=== PATIENT | female | born 1930 | race Caucasian/White ===

== ENCOUNTER 2017-01-13 23:51 | Inpatient (IN) | payer MEDICARE ==
--- NOTE | ~2017-01-13 | IDS ---
Interim Discharge Summary [facility] [address] [place]. [address] NAME: MEGAN MOSS : 30 STATUS : ADM IN PAT#: [id number] AGE: 86 ADM/REG DATE : 01/14/17 MR#: [id number] REPORT SERV DATE: 01/17/17 DICTATED BY: RTEE STRONG DATE: 01/17/17 REPORT STATUS : Draft TRANSCRIBED BY: IMELDA DATE: 01/17/17 ADMISSION DATE: 01/13/2017 DISCHARGE DATE: DATE OF INTERIM DISCHARGE: 01/17/2017 PROCEDURES DONE: 1. On 01/15/2017, KUB: Evidence for prior aortic stent graft, CABG procedure. Benign bowel gas pattern. Cardiomegaly. Left pleural effusion. 2. On 01/15/2017, chest x-ray PA and lateral, failure with left greater than right effusions. Cardiomegaly. Prior CABG procedure changes, stable. CONSULT: Dr. Alba from Cardiology. REASON FOR ADMISSION: Shortness of breath. HISTORY OF HOSPITAL STAY: An 86-year-old white female with past medical history of CHF with ejection fraction of 20% to 25% systolic dysfunction; chronic kidney disease, stage III; coronary artery disease, status post CABG; hypothyroidism; hypertension; peripheral vascular disease; presenting with shortness of breath. The patient was admitted for shortness of breath secondary to acute exacerbation of congestive heart failure. The patient was started on diuretics with Bumex t.i.d. Unfortunately, the patient developed elevated creatinine which required decreasing the dose. Cardiology was consulted for further management and the patient's acute systolic dysfunction. With the patient's worsening renal function, diuretics have been decreased and Milrinone has been started. With the renal function getting better, Cardiology increased the Bumex 1 mg t.i.d. and also continued with Milrinone with the hopes of decreasing the patient's congestive heart failure. Unfortunately, despite aggressive diuresis, the patient's BNP continues to elevate, hence the shortness of breath. DIAGNOSES ON DISCHARGE: 1. Shortness of breath secondary to acute exacerbation of congestive heart failure, systolic dysfunction, EF of 20% to 25%. Appreciate Cardiology input. Aggressive diuresis has been started. However, the patient's response has been prohibited by the elevated creatinine. We will monitor the patient's renal function with increase of diuresis. 2. Acute exacerbation of congestive heart failure, systolic dysfunction, because of problem #1. 3. Coronary artery disease, currently stable. 4. Chronic kidney disease, stage 3. The patient's renal function seems to fluctuate/worsens with increase of diuretics. Milrinone has been started per Cardiology. However, very difficult to maintain good renal function with diuretics. 5. Atrial fibrillation, continue the aspirin and Plavix. 6. Hypertension. The patient's blood pressure seems to fluctuate with the aggressive diuresis. At this time, priority goal is to diurese the patient as much as possible to decrease the shortness of breath. Interim Discharge Summary [address] [address] NAME: MEGAN MOSS : 30 STATUS : ADM IN [facility]#: [id number] AGE: 86 ADM/REG DATE : 01/14/17 MR#: [id number] REPORT SERV DATE: 01/17/17 DICTATED BY: TREE STRONG DATE: 01/17/17 REPORT STATUS : Draft TRANSCRIBED BY: IMELDA DATE: 01/17/17 CAROL/IMELDA Tree Strong MD / [id number] CC: MD TEJAS Anaya
--- NOTE | ~2017-01-13 | HP ---
History And Physical [place] [id number] [facility] [place]. [address] NAME: MEGAN BRUNO : 30 STATUS : ADM Nestor PAT#: [id number] AGE: 86 ADM/REG DATE : 01/13/17 MR#: [id number] REPORT SERV DATE: 01/14/17 DICTATED BY: EDGAR CORONADO DATE: 01/14/17 REPORT STATUS : Draft TRANSCRIBED BY: MODL DATE: 01/14/17 DATE OF ADMISSION: 01/13/2017 CHIEF COMPLAINT: This is a patient we accepted in transfer from [facility] after I spoke with Dr. Carey Galvez. HISTORY OF PRESENT ILLNESS: Briefly, this is an 86-year-old lady who according to Dr. Galvez came to their emergency room via EMS, had 3-4 days of worsening shortness of breath, cough, and yellowish sputum production. She has history of congestive heart failure for which she takes 2 mg of Bumex at home along with supplemental oxygen therapy at 2 L via nasal cannula. The EMS gave her some nebulized bronchodilator treatments, gave her a shot of Solu-Medrol as well. In the ER, the patient continued to have wheezes in both lungs and had intravenous Bumex as well. She then put out 500 mL of urine. Her BUN and creatinine were elevated at 43 and 1.7 today as well. EKG showed atrial fibrillation with rapid ventricular response at 110 per minute. She had a left bundle-branch block as well. Initial troponin was 0.08 and subsequently 0.7. She had complained of no chest pain. A chest x-ray according to Dr. Galvez showed pulmonary edema with left basal opacity versus atelectasis. BNP was not checked. She was given a dose of intravenous levofloxacin as well. Prior to transfer, her vital signs showed a heart rate of 124 which bounced anywhere between upper 90s to 120s. Her blood pressure was 143/66 and oxygen saturations were 92% on 2 L via nasal cannula. At the time of my evaluation here, Mrs. Bruno was an 86-year-old, who is alert, awake, oriented, not in acute distress. She did complain a lot about her restless legs syndrome and anxiety. She wanted Xanax. She denied any chest pain, palpitations, or orthopnea. She had no cough, hemoptysis, night sweats, or weight loss. She had no recent falls, loss of consciousness. She had no recent fevers, chills, nausea, vomiting, diarrhea. She did not have any hematemesis, hematochezia or hematuria. No other history of recent travel or exposures. PAST MEDICAL HISTORY: Significant for history of systolic congestive heart failure with an ejection fraction of 20% and cardiomyopathy. She has chronic kidney disease stage 3. She has coronary artery disease with coronary artery bypass graft. She has peripheral vascular disease, severe mitral regurgitation, and paroxysmal atrial fibrillation. She has hypothyroidism, abdominal aortic aneurysm, ischemic colitis, and mesenteric ischemia and past history of breast cancer status post mastectomy and radiation therapy. She also has COPD and hypertension. SOCIAL HISTORY: She has about more than 150 pack year history of smoking although she quit last year. She denies alcohol use or recreational drug use. She used to work in [employer] in the [employer]. FAMILY HISTORY: Noncontributory. MEDICATIONS: Her medications at home were reviewed by me in the chart today and reordered by me. History And Physical [address] [address] NAME: MEGAN BRUNO : 30 STATUS : ADM Nestor PAT#: [id number] AGE: 86 ADM/REG DATE : 01/13/17 MR#: [id number] REPORT SERV DATE: 01/14/17 DICTATED BY: EDGAR CORONADO DATE: 01/14/17 REPORT STATUS : Draft TRANSCRIBED BY: IMELDA DATE: 01/14/17 REVIEW OF SYSTEMS: As in history of present illness. All other systems were reviewed in detail and are quite unremarkable. PHYSICAL EXAMINATION: GENERAL: This is a pleasant, 86-year-old, not in any acute distress. HEENT: Her head is atraumatic, normocephalic. She is alert, awake, oriented to time, place, and person. Pupils are equal, reacting to light and accommodating. External ocular muscles are intact. Membranes are moist and pink. Sclerae nonicteric. NECK: Supple with no jugular venous distention, lymphadenopathy, or thyromegaly. LUNGS: Auscultation of her lungs revealed diffuse bilateral expiratory wheezes with some basal crackles as well. HEART: Auscultation of her heart revealed irregular rate and rhythm. ABDOMEN: Soft, nontender. Bowel sounds are present. EXTREMITIES: No cyanosis, clubbing, or edema. NEUROLOGIC: Grossly intact. No focal sensory or motor deficits. Higher functions appeared intact. She was able to move all four extremities. VITAL SIGNS: Upon arrival here showed temperature of 96.9, pulse 118, respirations 20 a minute, and blood pressure was 100/51, oxygen saturations were 94%, breathing 4 L of oxygen via nasal cannula. LABORATORY DATA: Laboratory data and other information that accompanied the patient from [facility] was reviewed by me in the chart today as well. IMPRESSION: 1. Acute on chronic exacerbation of systolic congestive heart failure. 2. Acute exacerbation of chronic obstructive pulmonary disease. 3. Chronic kidney disease stage 3. 4. History of pneumonia. 5. Hypertension. 6. Coronary artery disease with history of coronary artery bypass graft. 7. Peripheral vascular disease. 8. Severe mitral regurgitation. 9. Paroxysmal atrial fibrillation. 10.Hypothyroidism. PLAN: We will admit Mrs. Bruno to the Hospitalist Service with telemetry for a 24-hour observation period. We will start her on IV diuretics with Bumex given around the clock for 24 hours. Follow daily weights and output. Consult Dr. Carvajal. We will start her on bronchodilator treatments and oxygen therapy and start her on intravenous corticosteroids as well. Her atrial fibrillation is rate controlled at this time and if necessary we may dose her with intravenous Lopressor. We will go ahead and check her TSH as well. We will follow troponins to rule out acute coronary syndrome although this may be demand ischemia related. We will obtain cultures and as patient was given a dose of levofloxacin there, we will continue until we get Gram stains and if negative we may discontinue. We will go ahead and check lactate, procalcitonin, and cortisol level as well. We will also place her on unfractionated heparin for DVT prophylaxis while she is here. Please see the orders today History And Physical [address] [place]. [address] NAME: MEGAN BRUNO : 30 STATUS : ADM Nestor PAT#: [id number] AGE: 86 ADM/REG DATE : 01/13/17 MR#: [id number] REPORT SERV DATE: 01/14/17 DICTATED BY: EDGAR CORONADO DATE: 01/14/17 REPORT STATUS : Draft TRANSCRIBED BY: IMELDA DATE: 01/14/17 for details. I have discussed above plans with the patient and her daughter. Questions were answered and they are agreeable to the above recommendations. Further recommendations will be after Cardiology has had a chance to see her today. Dr. Carvajal has been consulted. Hospitalist Service will be following her during her stay here. /IMELDA Edgar Coronado M.D. / [id number] CC: Tree Stallworth MD
--- NOTE | ~2017-01-13 | CN ---
Consultation Report [facility] [address] [place]. [address] NAME: MEGAN BRUNO : 30 STATUS : ADM IN [facility]#: [id number] AGE: 86 ADM/REG DATE : 01/14/17 MR#: [id number] REPORT SERV DATE: 01/15/17 DICTATED BY: DOMINGO RIVERS DATE: 01/15/17 REPORT STATUS : Draft TRANSCRIBED BY: IMELDA DATE: 01/15/17 CARDIOLOGY CONSULTATION DATE OF CONSULTATION: [facility] PHYSICIAN: Germain Carvajal M.D. REASON FOR CONSULTATION: Congestive heart failure and dyspnea. HISTORY OF PRESENT ILLNESS: The patient is an 86-year-old woman who is chronically ill. She has a history of coronary artery disease and ischemic cardiomyopathy and severe COPD. She was initially presented to [facility] with increasing shortness of breath and a cough productive of yellow sputum. She had increasing oxygen demand and was on chronic diuretic. She was brought here with wheezing and mild CHF pattern on her chest x-ray. She has some increased edema. She reports being somewhat compliant with salt intake. She has chronic atrial fibrillation, unclear why she is not on anticoagulation. REVIEW OF SYSTEMS: The review of systems is as per the history of present illness. Ten other systems are negative. PAST MEDICAL HISTORY: 1. Coronary artery disease with ischemic cardiomyopathy. 2. COPD and atrial fibrillation. 3. Chronic back pain and diabetes. 4. Variable mitral regurg and [id number] mitral regurgitation. Previous ischemic colitis. FAMILY HISTORY: Noncontributory. SOCIAL HISTORY: The patient has close family support. Former smoker with heavy to previous tobacco use. ALLERGIES: CEFEPIME. HOME MEDICATIONS: Ativan, Xanax, Coreg 3.125 mg p.o. b.i.d. along with aspirin 81 daily, Bumex 2 p.o. b.i.d., Pletal, Plavix 75 daily, Colace, Flonase, Neurontin, [place], Xopenex, levothyroxine, Ativan, Reglan, Mycostatin cream, Zofran, Percocet, MiraLAX, Zocor 20 daily, Aldactone 25 daily, Restoril, albuterol. PHYSICAL EXAMINATION: VITAL SIGNS: The patient is afebrile. Heart rate is 101, blood pressure 117/69. GENERAL: The patient is pleasant, elderly white female, in no apparent distress. HEENT: Conjunctivae are anicteric, no xanthelasma, lips without cyanosis. Consultation Report [address] [place]. [address] NAME: MEGAN BRUNO : 30 STATUS : ADM IN PAT#: [id number] AGE: 86 ADM/REG DATE : 01/14/17 MR#: [id number] REPORT SERV DATE: 01/15/17 DICTATED BY: DOMINGO RIVERS DATE: 01/15/17 REPORT STATUS : Draft TRANSCRIBED BY: IMELDA DATE: 01/15/17 NECK: Supple, normal JVP, carotids +2 without bruit. LUNGS: Clear to auscultation bilaterally, no wheezes, rales or rhonchi. CARDIOVASCULAR: Regular rate and rhythm. Normal S1 and S2 without S3. No murmur or rub. PMI is nondisplaced. ABDOMEN: Soft, nontender, nondistended, with normal bowel sounds. No hepatomegaly. EXTREMITIES: No clubbing, cyanosis or edema. NEURO/PSYCH: Alert and oriented to person, place and time. No obvious neurologic deficits. Mood and affect normal. IMPRESSION: 1. Rule out pneumonia and bronchitis. 2. Acute on chronic systolic congestive heart failure. 3. Coronary artery disease with previous CABG. 4. Ischemic cardiomyopathy. 5. Atrial fibrillation, unclear why she is not on anticoagulation. 6. Diabetes. RECOMMENDATIONS: Ms. Bruno has multiple medical issues. She has dyspnea which is multifactorial with underlying COPD probable bronchitis and probably acute on chronic congestive heart failure. I agree with diuresis, continued pulmonary toilet treatment, and antibiotics. If her troponin is chronically elevated, we will not pursue that at this time. She has had no anginal type symptoms and no ST-segment changes on her EKG. We will have to watch her heart rate while she is here in the hospital and I would restart her on Coreg. She previously was on hospice, I think given her comorbidities may benefit from palliative care. WO/IMELDA Domingo Rivers M.D., Ph.D, F.A.C.CKandi / [id number] CC: MD Alem Anaya Vicky L
--- NOTE | ~2017-01-13 | DS ---
Discharge Summary [facility] [address] [place]. [address] NAME: MEGAN MOSS : 30 STATUS : ADM IN [facility]#: [id number] AGE: 86 ADM/REG DATE : 01/14/17 MR#: [id number] REPORT SERV DATE: 01/21/17 DICTATED BY: DIETER DESHPANDE DATE: 01/21/17 REPORT STATUS : Draft TRANSCRIBED BY: MODL DATE: 01/21/17 ADMISSION DATE: 01/14/2017 DISCHARGE DATE: 01/21/2017 DISCHARGE DIAGNOSES: 1. Acute on chronic systolic heart failure. 2. Chronic kidney disease with acute kidney injury most likely cardiorenal syndrome at this time. 3. Hypoxic respiratory failure, acute on chronic. 4. Peripheral arterial disease. 5. Hypertension. 6. Hypothyroidism. 7. Chronic anemia. 8. Cardiomyopathy, ischemic in nature with ejection fraction of 20%. 9. Coronary artery disease, status post bypass grafting in the past. 10.Severe mitral regurgitation. 11.Paroxysmal atrial fibrillation. 12.Abdominal aortic aneurysm. 13.History of ischemic colitis and mesenteric ischemia in the past. 14.History of breast cancer, status post mastectomy and radiation therapy. 15.Chronic obstructive pulmonary disease. CONSULTANTS DURING THIS HOSPITALIZATION: Domingo Alba M.D., Ph.D, F.A.C.C., of Cardiology. INVASIVE PROCEDURES DONE DURING THIS HOSPITALIZATION: None. BRIEF HISTORY OF PRESENT ILLNESS: The patient is an 86-year-old white female with advanced coronary artery disease and multiple other comorbidities who presented with worsening congestive heart failure and systolic dysfunction and increased shortness of breath. For detailed history and physical exam, please see note dictated by Dr. Edgar Alvarez on 01/14/2017. HOSPITAL COURSE: After being admitted to the hospital, this patient was cared for by Dr. Stallworth. Please refer to interim summary dictated by Dr. Stallworth. I took over this patient's care on 01/19/2017. This patient appeared very feeble, debilitated. After having discussion with Dr. Alba, it was decided and concurred that the patient had end-stage congestive heart failure due to cardiomyopathy and underlying coronary artery disease as well as cardiorenal syndrome most likely due to failing kidneys. This patient initially we tried to diurese with IV milrinone drip, however that was unsuccessful. She got 48 hours of milrinone. She continued to decline, have significant respiratory issues and we were not able to diurese as her kidney function continued to worsen as well. Nephrology also signed off her care and did not feel that there was anything more they had to offer. After discussing with the family, it was decided that she would be best served by hospice in the home setting. This has been arranged through Case Management, and patient is ready to be discharged home with Hospice. Discharge Summary [address] [place]. [address] NAME: MEGAN MOSS : 30 STATUS : ADM IN PAT#: [id number] AGE: 86 ADM/REG DATE : 01/14/17 MR#: [id number] REPORT SERV DATE: 01/21/17 DICTATED BY: DIETER DESHPANDE DATE: 01/21/17 REPORT STATUS : Draft TRANSCRIBED BY: IMELDA DATE: 01/21/17 DISCHARGE DISPOSITION: Home. DISCHARGE ACTIVITY: The patient bedbound. DISCHARGE DIET: As tolerated. DISCHARGE MEDICATIONS: Aspirin 81 mg one tablet daily, Bumex 2 mg twice daily, Coreg 3.125 mg once daily, Pletal 100 mg p.o. with breakfast and supper, Plavix 75 mg once daily, Colace 100 mg twice daily, levothyroxine 112 mcg once daily, Reglan 5 mg with breakfast and supper by mouth, MiraLax p.r.n. for constipation, Colace for constipation, Aldactone 12.5 mg once every morning, Pulmicort neb 1 twice daily, Tylenol 650 b.i.d. p.r.n. for pain, Flonase one spray each nostril once daily p.r.n. for congestion, hydrocodone 5/325 one tablet every four hours p.r.n. for pain, Mycostatin powder p.r.n., Zofran 4 mg every eight hours p.r.n. for nausea and vomiting, Xanax 0.25 mg p.o. twice daily p.r.n., Systane eye drops p.r.n. for dry eyes, and morphine 1-2 mg p.o. liquid q.3 hours p.r.n. for shortness of breath and pain. DISCHARGE FOLLOWUP: By [facility] in the home setting. More than 35 minutes spent planning this patient's discharge, discussing care with family, arranging hospice, and documenting this discharge. KENDALL/IMELDA Dieter Deshpande M.D. / [id number] CC: Nick Wong M.D., Ph.D, F.A.C.C.
[~2017-01-13 23:51] MED LIST: ACCO20 PO; ALBUTEROL0.083 % INH; ALTA2.5 PO; ASAB PO; ATV.5 PO; BIOTIN10 MG PO; BISR PR; BUM2 PO; CEFT5 PO; CILOSTAZOL100 MG PO; CO Q-10 PO; COLON HELPER PO; COREG3 PO; COREG6 PO; DIGITEK0.125 MG PO; DSS PO; DULERA 200 MCG/13 GM; DULERA 200 MCG/13 GM INH; DUONEB INH; ENDOCET1 TAB PO; FERROUS SULF325 M1 PO; FLONASE NAS; HARD NAILS PO; IODOSORB TOP; IRON OTC PO; IRON PO; KLONOPIN WAF0.125 MG PO; KLOR-CON M2020 MEQ PO; L20 PO; L40 PO; LAN125 PO; LEVOTHYROXIN112 MCG PO; LEVOTHYROXIN125 MCG PO; LIPITOR20 PO; MAGOX4 PO; MIRALAX POWDER1 PKT PO; MIRALAXPKT PO; MYCOSCROI TOP; NEUR300 PO; NICODERM C14 MG/24 H TOP; NITROQUICK0.4 MG SL; NITROSTAT0.4 MG SL; NORCO1 TA1 PO; NYSTOP100000 MG TOP; P10 PO; P20 PO; PCET PO; PEP20 PO; PERCOCET1 TA2 PO; PERI-COLACE1 TAB PO; PLAVIX PO; PLETAL PO; PLETAL100 PO; PRIN2.5 PO; PROAIR HFA INH; PROTONIX PO; PROVENTSOL INH; PULRESP.5 INH; REG5 PO; REM15 PO; REST15 PO; SENSICARE TOP; SENTAB PO; SPIRIVA INH; SPIRO25 PO; SYN1 PO; SYN112 PO; SYN125 PO; SYSTANE OP; SYSTANE OPH; T PO; VENTOLIN HFA INH; VICKS SINEX12 HR NAS; X25 PO; X5 PO; XOPENEX1.25 MG/3 INH; Z-PAK PO; ZBETA10 PO; ZIAC10 PO; ZOCOR10 PO; ZOCOR20 PO; ZOCOR5 MG PO; ZOFRAN4 PO; [UNRECOGNIZED DRUG - OTHER] PO; [UNRECOGNIZED DRUG - OTHER] PO; [UNRECOGNIZED DRUG - OTHER] PO; [UNRECOGNIZED DRUG - OTHER] PO
[2017-01-14] MEDS ORDERED: X25 PO (02:02)
[2017-01-14] MEDS ORDERED: ZOFRAN4 PO (02:15)
[2017-01-14] MEDS ORDERED: REST15 PO (02:15)
[2017-01-14] MEDS ORDERED: PCET PO (02:15)
[2017-01-14] MEDS ORDERED: ATV.5 (02:16)
[2017-01-14] MEDS ORDERED: SYMBICORT 160/41 INH INH (02:17)
[2017-01-14] MEDS ORDERED: VENTOLIN HFA INH (02:18)
[2017-01-14] MEDS ORDERED: NYSTATPOW TOP (02:20)
[2017-01-14] MEDS ORDERED: COLON HELPER PO (02:22)
[2017-01-14] MEDS ORDERED: XOPEN0.5ML (02:23)
[2017-01-14 03:00] LABS: TROPONIN I 0.12 NG/ML (<0.05)
[2017-01-14 03:48] LABS: BASOPHILS 0.8 %; BASOPHILS ABSOLUTE 0.06 10/3/uL (0.0-0.16); EOSINOPHILS 1.2 %; EOSINOPHILS ABSOLUTE 0.09 10/3/uL (0.0-0.53); HEMOGLOBIN 9.9 g/dL (12.0-16.0); IMMATURE GRANULOCYTES 0.1 %; IMMATURE GRANULOCYTES ABSOLUTE 0.01 10/3/uL (0.0-0.11); LYMPHOCYTES 20.8 %; LYMPHOCYTES ABSOLUTE 1.52 10/3/uL (0.67-4.30); MEAN CORPUS HGB CONC 31.6 g/dL (32.0-36.0); MEAN CORPUSCULAR HEMOGLOB 29.6 pg (26.0-34.0); MEAN PLATELET VOLUME 9.9 fL (9.2-13.0); MONOCYTES 12.6 %; MONOCYTES ABSOLUTE 0.92 10/3/uL (0.21-1.20); NEUTROPHILS 64.5 %; NUCLEATED RED BLOOD CELLS 0.6 /100WBC (0-0); PLATELET COUNT 297 10/3/uL (150-400); RBC DISTRIBUTION WIDTH 16.5 % (12.0-16.0); RED CELL COUNT 3.35 10/6/uL (4.0-5.6); WHITE BLOOD CELLS 7.3 10/3/uL (4.5-10.5)
[2017-01-14 03:49] LABS: ALBUMIN 3.1 G/DL (3.5-5.0); ALKALINE PHOSPHATASE 88 U/L (45-117); BUN (BLOOD UREA NITROGEN) 41 MG/DL (6-23); CALCIUM, SERUM 8.1 MG/DL (8.5-10.4); CHLORIDE, SERUM 100 MMOL/L (96-112); CO2 (CARBON DIOXIDE) 27 MMOL/L (24-34); CREATININE 1.61 MG/DL (0.55-1.02); GFR AFRICAN AMERICAN 33 ML/MIN (>=60); GFR NON AFRICAN AMERICAN 29 ML/MIN (>=60); GLOBULIN 3.2 G/DL (2.5-4.1); GLUCOSE, SERUM 101 MG/DL (60-99); POTASSIUM, SERUM 3.8 MMOL/L (3.5-5.3); SGOT(AST) 43 U/L (5-40); SGPT(ALT) 75 U/L (5-65); SODIUM, SERUM 142 MMOL/L (135-148); TOTAL BILIRUBIN 0.5 MG/DL (0-1.2); TOTAL PROTEIN 6.3 G/DL (6.0-8.5)
[2017-01-14 03:50] LABS: HEMATOCRIT 31.3 % (36.0-48.0); MANUAL DIFF NO %; MEAN CORPUSCULAR VOLUME 93.4 fL (80-100)
[2017-01-14 07:46] LABS: ALBUMIN 3.1 G/DL (3.5-5.0); ALKALINE PHOSPHATASE 88 U/L (45-117); BUN (BLOOD UREA NITROGEN) 41 MG/DL (6-23); CALCIUM, SERUM 8.2 MG/DL (8.5-10.4); CHLORIDE, SERUM 99 MMOL/L (96-112); CO2 (CARBON DIOXIDE) 26 MMOL/L (24-34); CREATININE 1.58 MG/DL (0.55-1.02); GFR AFRICAN AMERICAN 34 ML/MIN (>=60); GFR NON AFRICAN AMERICAN 29 ML/MIN (>=60); GLOBULIN 3.2 G/DL (2.5-4.1); GLUCOSE, SERUM 100 MG/DL (60-99); POTASSIUM, SERUM 3.8 MMOL/L (3.5-5.3); SGOT(AST) 44 U/L (5-40); SGPT(ALT) 73 U/L (5-65); SODIUM, SERUM 140 MMOL/L (135-148); TOTAL BILIRUBIN 0.6 MG/DL (0-1.2); TOTAL PROTEIN 6.3 G/DL (6.0-8.5)
[2017-01-14] MEDS ORDERED: NITROSTAT0.4 MG SL (10:56)
[2017-01-14] MEDS ORDERED: ASAB PO (10:57)
[2017-01-14] MEDS ORDERED: COREG3 PO (10:57)
[2017-01-14] MEDS ORDERED: SYSTANE OPH (10:57)
[2017-01-14] MEDS ORDERED: T PO (10:58)
[2017-01-14 11:03] LABS: INTERNATIONAL NORMAL RATI 1.4 UNITS (-); PROTIME (NOT ORD) 16.8 SEC (12.0-14.5)
[2017-01-14 12:20] LABS: ASCORBIC ACID (UR NOT ORDER) NEG (NEG); BILIRUBIN, URINE NEGATIVE (NEG); KETONE, URINE NEGATIVE (NEG); LEUKOCYTE ESTERASE(NOT OR MOD (NEG); WBC (NOT ORDERED) (RFLEX) 14 (0-5)
[2017-01-15 05:34] LABS: ALBUMIN 3.3 G/DL (3.5-5.0); ALKALINE PHOSPHATASE 87 U/L (45-117); CALCIUM, SERUM 8.7 MG/DL (8.5-10.4); CHLORIDE, SERUM 100 MMOL/L (96-112); CO2 (CARBON DIOXIDE) 25 MMOL/L (24-34); GLOBULIN 3.3 G/DL (2.5-4.1); GLUCOSE, SERUM 120 MG/DL (60-99); SGOT(AST) 56 U/L (5-40); SGPT(ALT) 82 U/L (5-65); SODIUM, SERUM 136 MMOL/L (135-148); TOTAL BILIRUBIN 0.5 MG/DL (0-1.2); TOTAL PROTEIN 6.6 G/DL (6.0-8.5)
[2017-01-15 05:36] LABS: BUN (BLOOD UREA NITROGEN) 54 MG/DL (6-23); CREATININE 2.11 MG/DL (0.55-1.02); GFR AFRICAN AMERICAN 24 ML/MIN (>=60); GFR NON AFRICAN AMERICAN 21 ML/MIN (>=60); PHOSPHORUS, SERUM 4.2 MG/DL (2.5-4.5)
[2017-01-15 05:52] LABS: BASOPHILS 0.4 %; BASOPHILS ABSOLUTE 0.04 10/3/uL (0.0-0.16); EOSINOPHILS 0.8 %; EOSINOPHILS ABSOLUTE 0.08 10/3/uL (0.0-0.53); HEMATOCRIT 32.5 % (36.0-48.0); HEMOGLOBIN 10.3 g/dL (12.0-16.0); IMMATURE GRANULOCYTES 0.2 %; IMMATURE GRANULOCYTES ABSOLUTE 0.02 10/3/uL (0.0-0.11); LYMPHOCYTES 17.5 %; MEAN CORPUS HGB CONC 31.7 g/dL (32.0-36.0); MEAN CORPUSCULAR HEMOGLOB 30.2 pg (26.0-34.0); MEAN CORPUSCULAR VOLUME 95.3 fL (80-100); MEAN PLATELET VOLUME 10.2 fL (9.2-13.0); MONOCYTES 12.8 %; MONOCYTES ABSOLUTE 1.32 10/3/uL (0.21-1.20); NEUTROPHILS 68.3 %; NEUTROPHILS ABSOLUTE 7.02 10/3/uL (2.02-8.40); NUCLEATED RED BLOOD CELLS 0.7 /100WBC (0-0); PLATELET COUNT 280 10/3/uL (150-400); RBC DISTRIBUTION WIDTH 16.5 % (12.0-16.0); RED CELL COUNT 3.41 10/6/uL (4.0-5.6)
[2017-01-15 05:53] LABS: MANUAL DIFF NO %; WHITE BLOOD CELLS 10.3 10/3/uL (4.5-10.5)
[2017-01-16 07:36] LABS: BASOPHILS 0.5 %; BASOPHILS ABSOLUTE 0.04 10/3/uL (0.0-0.16); EOSINOPHILS 0.8 %; EOSINOPHILS ABSOLUTE 0.07 10/3/uL (0.0-0.53); HEMATOCRIT 30.5 % (36.0-48.0); HEMOGLOBIN 9.6 g/dL (12.0-16.0); IMMATURE GRANULOCYTES 0.4 %; IMMATURE GRANULOCYTES ABSOLUTE 0.03 10/3/uL (0.0-0.11); LYMPHOCYTES 17.7 %; LYMPHOCYTES ABSOLUTE 1.48 10/3/uL (0.67-4.30); MEAN CORPUS HGB CONC 31.5 g/dL (32.0-36.0); MEAN CORPUSCULAR HEMOGLOB 29.5 pg (26.0-34.0); MEAN CORPUSCULAR VOLUME 93.8 fL (80-100); MEAN PLATELET VOLUME 10.4 fL (9.2-13.0); MONOCYTES 12.3 %; MONOCYTES ABSOLUTE 1.03 10/3/uL (0.21-1.20); NEUTROPHILS 68.3 %; NEUTROPHILS ABSOLUTE 5.73 10/3/uL (2.02-8.40); PLATELET COUNT 250 10/3/uL (150-400); RBC DISTRIBUTION WIDTH 16.3 % (12.0-16.0); RED CELL COUNT 3.25 10/6/uL (4.0-5.6); WHITE BLOOD CELLS 8.4 10/3/uL (4.5-10.5)
[2017-01-16 07:41] LABS: MANUAL DIFF NO %
[2017-01-16 08:00] LABS: A/G RATIO 1.1 (0.7-1.9); ALBUMIN 3.1 G/DL (3.5-5.0); ALKALINE PHOSPHATASE 86 U/L (45-117); BUN (BLOOD UREA NITROGEN) 55 MG/DL (6-23); CALCIUM, SERUM 8.3 MG/DL (8.5-10.4); CHLORIDE, SERUM 102 MMOL/L (96-112); CO2 (CARBON DIOXIDE) 23 MMOL/L (24-34); GFR AFRICAN AMERICAN 27 ML/MIN (>=60); GFR NON AFRICAN AMERICAN 23 ML/MIN (>=60); GLOBULIN 2.7 G/DL (2.5-4.1); GLUCOSE, SERUM 112 MG/DL (60-99); PHOSPHORUS, SERUM 4.2 MG/DL (2.5-4.5); SGOT(AST) 99 U/L (5-40); SGPT(ALT) 128 U/L (5-65); SODIUM, SERUM 137 MMOL/L (135-148); TOTAL BILIRUBIN 0.6 MG/DL (0-1.2); TOTAL PROTEIN 5.8 G/DL (6.0-8.5)
[2017-01-17 07:03] LABS: ALBUMIN 2.9 G/DL (3.5-5.0); BASOPHILS 0.4 %; BASOPHILS ABSOLUTE 0.03 10/3/uL (0.0-0.16); BUN (BLOOD UREA NITROGEN) 54 MG/DL (6-23); CALCIUM, SERUM 8.3 MG/DL (8.5-10.4); CHLORIDE, SERUM 100 MMOL/L (96-112); CO2 (CARBON DIOXIDE) 28 MMOL/L (24-34); CREATININE 1.83 MG/DL (0.55-1.02); EOSINOPHILS 1.3 %; GFR AFRICAN AMERICAN 28 ML/MIN (>=60); GFR NON AFRICAN AMERICAN 25 ML/MIN (>=60); GLUCOSE, SERUM 110 MG/DL (60-99); HEMOGLOBIN 9.1 g/dL (12.0-16.0); IMMATURE GRANULOCYTES 0.3 %; IMMATURE GRANULOCYTES ABSOLUTE 0.02 10/3/uL (0.0-0.11); LYMPHOCYTES 20.5 %; LYMPHOCYTES ABSOLUTE 1.57 10/3/uL (0.67-4.30); MEAN CORPUS HGB CONC 32.5 g/dL (32.0-36.0); MEAN CORPUSCULAR HEMOGLOB 30.3 pg (26.0-34.0); MEAN CORPUSCULAR VOLUME 93.3 fL (80-100); MONOCYTES 10.7 %; MONOCYTES ABSOLUTE 0.82 10/3/uL (0.21-1.20); NEUTROPHILS 66.8 %; NEUTROPHILS ABSOLUTE 5.11 10/3/uL (2.02-8.40); NUCLEATED RED BLOOD CELLS 1.4 /100WBC (0-0); PHOSPHORUS, SERUM 4.1 MG/DL (2.5-4.5); PLATELET COUNT 244 10/3/uL (150-400); POTASSIUM, SERUM 3.7 MMOL/L (3.5-5.3); RBC DISTRIBUTION WIDTH 16.1 % (12.0-16.0); SODIUM, SERUM 138 MMOL/L (135-148); WHITE BLOOD CELLS 7.7 10/3/uL (4.5-10.5)
[2017-01-17 07:04] LABS: MANUAL DIFF NO %
[2017-01-18 04:22] LABS: ALBUMIN 3.1 G/DL (3.5-5.0); ALKALINE PHOSPHATASE 82 U/L (45-117); BASOPHILS 0.2 %; BASOPHILS ABSOLUTE 0.02 10/3/uL (0.0-0.16); CALCIUM, SERUM 8.4 MG/DL (8.5-10.4); CHLORIDE, SERUM 99 MMOL/L (96-112); CO2 (CARBON DIOXIDE) 27 MMOL/L (24-34); CREATININE 1.97 MG/DL (0.55-1.02); EOSINOPHILS 1.2 %; GFR AFRICAN AMERICAN 26 ML/MIN (>=60); GFR NON AFRICAN AMERICAN 22 ML/MIN (>=60); GLUCOSE, SERUM 110 MG/DL (60-99); HEMATOCRIT 30.6 % (36.0-48.0); HEMOGLOBIN 9.6 g/dL (12.0-16.0); IMMATURE GRANULOCYTES 0.1 %; IMMATURE GRANULOCYTES ABSOLUTE 0.01 10/3/uL (0.0-0.11); LYMPHOCYTES ABSOLUTE 1.87 10/3/uL (0.67-4.30); MEAN CORPUS HGB CONC 31.4 g/dL (32.0-36.0); MEAN CORPUSCULAR HEMOGLOB 29.2 pg (26.0-34.0); MEAN PLATELET VOLUME 10.4 fL (9.2-13.0); MONOCYTES 10.1 %; MONOCYTES ABSOLUTE 0.86 10/3/uL (0.21-1.20); NEUTROPHILS 66.4 %; NEUTROPHILS ABSOLUTE 5.64 10/3/uL (2.02-8.40); PHOSPHORUS, SERUM 3.4 MG/DL (2.5-4.5); PLATELET COUNT 277 10/3/uL (150-400); RBC DISTRIBUTION WIDTH 16.2 % (12.0-16.0); RED CELL COUNT 3.29 10/6/uL (4.0-5.6); SGPT(ALT) 165 U/L (5-65); SODIUM, SERUM 135 MMOL/L (135-148); TOTAL BILIRUBIN 0.5 MG/DL (0-1.2); TOTAL PROTEIN 6.1 G/DL (6.0-8.5); WHITE BLOOD CELLS 8.5 10/3/uL (4.5-10.5)
[2017-01-18 04:24] LABS: BUN (BLOOD UREA NITROGEN) 50 MG/DL (6-23); POTASSIUM, SERUM 4.9 MMOL/L (3.5-5.3)
[2017-01-18 04:25] LABS: SGOT(AST) 94 U/L (5-40)
[2017-01-18 04:35] LABS: MANUAL DIFF NO %
[2017-01-19 10:24] LABS: CHLORIDE, SERUM 100 MMOL/L (96-112); POTASSIUM, SERUM 4.8 MMOL/L (3.5-5.3); SODIUM, SERUM 137 MMOL/L (135-148)
[2017-01-19 10:42] LABS: BUN (BLOOD UREA NITROGEN) 46 MG/DL (6-23); CALCIUM, SERUM 8.8 MG/DL (8.5-10.4); CO2 (CARBON DIOXIDE) 26 MMOL/L (24-34); CREATININE 1.95 MG/DL (0.55-1.02); GFR AFRICAN AMERICAN 26 ML/MIN (>=60); GFR NON AFRICAN AMERICAN 23 ML/MIN (>=60); GLUCOSE, SERUM 121 MG/DL (60-99)
[2017-01-20 05:30] LABS: BASOPHILS 0.2 %; BASOPHILS ABSOLUTE 0.02 10/3/uL (0.0-0.16); EOSINOPHILS 0.1 %; EOSINOPHILS ABSOLUTE 0.01 10/3/uL (0.0-0.53); HEMATOCRIT 31.1 % (36.0-48.0); HEMOGLOBIN 9.8 g/dL (12.0-16.0); IMMATURE GRANULOCYTES 0.4 %; IMMATURE GRANULOCYTES ABSOLUTE 0.05 10/3/uL (0.0-0.11); LYMPHOCYTES 8.2 %; LYMPHOCYTES ABSOLUTE 1.09 10/3/uL (0.67-4.30); MANUAL DIFF NO %; MEAN CORPUS HGB CONC 31.5 g/dL (32.0-36.0); MEAN CORPUSCULAR HEMOGLOB 29.5 pg (26.0-34.0); MEAN CORPUSCULAR VOLUME 93.7 fL (80-100); MEAN PLATELET VOLUME 10.8 fL (9.2-13.0); MONOCYTES 11.9 %; MONOCYTES ABSOLUTE 1.58 10/3/uL (0.21-1.20); NEUTROPHILS 79.2 %; NEUTROPHILS ABSOLUTE 10.54 10/3/uL (2.02-8.40); PLATELET COUNT 245 10/3/uL (150-400); RBC DISTRIBUTION WIDTH 16.3 % (12.0-16.0); RED CELL COUNT 3.32 10/6/uL (4.0-5.6); WHITE BLOOD CELLS 13.3 10/3/uL (4.5-10.5)
[2017-01-20 07:04] LABS: BUN (BLOOD UREA NITROGEN) 47 MG/DL (6-23); CALCIUM, SERUM 8.4 MG/DL (8.5-10.4); CHLORIDE, SERUM 99 MMOL/L (96-112); CO2 (CARBON DIOXIDE) 26 MMOL/L (24-34); CREATININE 2.19 MG/DL (0.55-1.02); GFR AFRICAN AMERICAN 23 ML/MIN (>=60); GFR NON AFRICAN AMERICAN 20 ML/MIN (>=60); GLUCOSE, SERUM 113 MG/DL (60-99); PHOSPHORUS, SERUM 4.3 MG/DL (2.5-4.5); POTASSIUM, SERUM 5.5 MMOL/L (3.5-5.3); SODIUM, SERUM 135 MMOL/L (135-148)
[2017-01-20 07:07] LABS: TROPONIN I 0.12 NG/ML (<0.05)
[2017-01-21 05:29] LABS: ALBUMIN 2.9 G/DL (3.5-5.0); BUN (BLOOD UREA NITROGEN) 60 MG/DL (6-23); CALCIUM, SERUM 8.2 MG/DL (8.5-10.4); CHLORIDE, SERUM 103 MMOL/L (96-112); CO2 (CARBON DIOXIDE) 24 MMOL/L (24-34); CREATININE 2.75 MG/DL (0.55-1.02); GFR AFRICAN AMERICAN 17 ML/MIN (>=60); GFR NON AFRICAN AMERICAN 15 ML/MIN (>=60); GLUCOSE, SERUM 102 MG/DL (60-99); PHOSPHORUS, SERUM 4.7 MG/DL (2.5-4.5); POTASSIUM, SERUM 5.3 MMOL/L (3.5-5.3); SODIUM, SERUM 137 MMOL/L (135-148)
[2017-01-21 05:38] LABS: BASOPHILS 0.2 %; BASOPHILS ABSOLUTE 0.02 10/3/uL (0.0-0.16); EOSINOPHILS 0.6 %; EOSINOPHILS ABSOLUTE 0.06 10/3/uL (0.0-0.53); HEMATOCRIT 29.6 % (36.0-48.0); HEMOGLOBIN 9.4 g/dL (12.0-16.0); IMMATURE GRANULOCYTES 0.3 %; IMMATURE GRANULOCYTES ABSOLUTE 0.03 10/3/uL (0.0-0.11); LYMPHOCYTES 14.1 %; LYMPHOCYTES ABSOLUTE 1.33 10/3/uL (0.67-4.30); MEAN CORPUS HGB CONC 31.8 g/dL (32.0-36.0); MEAN CORPUSCULAR HEMOGLOB 29.7 pg (26.0-34.0); MEAN CORPUSCULAR VOLUME 93.4 fL (80-100); MEAN PLATELET VOLUME 10.7 fL (9.2-13.0); MONOCYTES 13.8 %; NEUTROPHILS ABSOLUTE 6.71 10/3/uL (2.02-8.40); NUCLEATED RED BLOOD CELLS 0.8 /100WBC (0-0); PLATELET COUNT 210 10/3/uL (150-400); RBC DISTRIBUTION WIDTH 16.2 % (12.0-16.0); RED CELL COUNT 3.17 10/6/uL (4.0-5.6); WHITE BLOOD CELLS 9.5 10/3/uL (4.5-10.5)
[2017-01-21 06:05] LABS: MANUAL DIFF NO %
[2017-01-21] MEDS ORDERED: ASAB PO (10:54)
[2017-01-21] MEDS ORDERED: [UNRECOGNIZED DRUG - OTHER] PO (10:56)
== END 2017-01-21 13:39 | disposition hospice, home (50) | DRG 291 ==
LOC: 6NO 23:51
PROVIDERS: Hospitalist; Internal Medicine; Internal Medicine Cardiovascular Disease; Internal Medicine Pulmonary Disease; Nurse Practitioner Family
DX: I13.0 Hypertensive heart and chronic kidney disease with heart failure and stage 1 through stage 4 chronic kidney disease, or unspecified chronic kidney disease (principal); I50.23 Acute on chronic systolic (congestive) heart failure; J96.21 Acute and chronic respiratory failure with hypoxia; N17.9 Acute kidney failure, unspecified; J44.1 Chronic obstructive pulmonary disease with (acute) exacerbation; N18.3 Chronic kidney disease, stage 3 (moderate); I73.9 Peripheral vascular disease, unspecified; E03.9 Hypothyroidism, unspecified; I25.5 Ischemic cardiomyopathy; I71.4 Abdominal aortic aneurysm, without rupture; E11.22 Type 2 diabetes mellitus with diabetic chronic kidney disease; I34.0 Nonrheumatic mitral (valve) insufficiency; I25.10 Atherosclerotic heart disease of native coronary artery without angina pectoris; M54.9 Dorsalgia, unspecified; D63.8 Anemia in other chronic diseases classified elsewhere; K59.00 Constipation, unspecified; Z95.1 Presence of aortocoronary bypass graft; I48.0 Paroxysmal atrial fibrillation; Z85.3 Personal history of malignant neoplasm of breast; Z90.10 Acquired absence of unspecified breast and nipple; Z79.82 Long term (current) use of aspirin
CPT/HCPCS: 71010; 71020; 74020; 80048; 80053; 80069; 81001; 83605; 83735; 83880; 84100; 84443; 84484; 85025; 85610; 87040; 87070; 87086; 87205; 87449; 93005; 94640; A9270-GY; J2260; J2405; J2550; J2930